=== PATIENT | female | born 1960 | race Caucasian/White ===

== ENCOUNTER 2018-01-22 06:35 | Day surgery (SDC) | END 2018-01-22 11:40 | disposition home or self-care (01) ==

== ENCOUNTER 2018-11-26 09:26 | Day surgery (SDC) | payer OTHER ==
[~2018-11-26] VITALS: Ht 165.1 cm; Wt 73.2 kg
[~2018-11-26 09:26] MED LIST: LOSARTAN PO
[2018-11-26 10:30] VITALS: Ht 165.1 cm; Wt 73.2 kg
[2018-11-26] MEDS ORDERED: HYDR12.58 PO (10:36)
[2018-11-26] MEDS ORDERED: ASPI-903 PO (10:36)
[2018-11-26] MEDS ORDERED: METFORMIN (10:36)
[2018-11-26 10:49] VITALS: BP 153/80; PULSE 62; RESP 20
[2018-11-26] MEDS ORDERED: LIDOCAINE 4% SOLUTION 50 ML BTL ONE (10:57)
[2018-11-26] MEDS ORDERED: MIDAZOLAM 1 MG/ML 2 ML INJ ONE ×3 (11:59→12:00)
[2018-11-26] MEDS ORDERED: FENTAnyl 50 MCG/ML VIAL ONE ×2 (11:59)
== END 2018-11-26 12:30 | disposition home or self-care (01) ==
LOC: GIL 09:26
PROVIDERS: ATTEND Internal Medicine Gastroenterology
DX: Z12.11 Encounter for screening for malignant neoplasm of colon (principal); K21.0 Gastro-esophageal reflux disease with esophagitis; K57.30 Diverticulosis of large intestine without perforation or abscess without bleeding
CPT/HCPCS: 43239; 45378; 88305; 88312; 88313; J2250; J3010; Z7610